=== PATIENT | female | born 1970 | race Caucasian/White ===

== ENCOUNTER → 2024-09-25 | Outpatient (CLI) | payer SELFPAY ==
[2024-09-25 09:37] LABS: HIV (1&2) Antibody Rapid Non-Reactive
[2024-09-25 09:53] LABS: Syphilis Nonreactive (Nonreactive)
[2024-09-25 10:12] LABS: Hepatitis A Antibody IgM Non Reactive (Non React); Hepatitis B Core Antibody IgM Non Reactive (Non React); Hepatitis B Surface Antigen Non Reactive (Non React); Hepatitis C Antibody Non Reactive (Non React)
== END | disposition home or self-care (01) ==
LOC: COPL 07:48
PROVIDERS: PCP Family Medicine; Referring Provider Nurse Practitioner Family; Visit Provider Nurse Practitioner Family
DX: Z11.3 Encounter for screening for infections with a predominantly sexual mode of transmission (principal)
CPT/HCPCS: 36415; 80074; 86703; 86780